=== PATIENT | female | born 1945 | race Two or more races ===

== ENCOUNTER 2020-07-25 00:25 | Emergency (ER) | payer OTHER ==
[~2020-07-25] VITALS: Ht 157.5 cm; Wt 45.4 kg
--- NOTE | 2020-07-25 00:48 | Emergency Room Report ---
History of Present Illness General Chief Complaint: Generalized Weakness Source: Patient, EMS Present Illness HPI 74-year-old female with a history of arthritis on Celebrex here with generalized weakness. Patient says that for the past 4 days she has had a lack of appetite and diarrhea. Says that the stool is watery and denies any change in stool color. No melena. Says she has had a lack of appetite but no nausea or vomiting. No fevers, chills, chest pain, palpitation, shortness of breath, back pain, abdominal pain, dysuria. Allergies: Coded Allergies: No Known Allergies (Unverified , 07/25/20) COVID-19 Screening Contact w/high risk pt: No Experienced COVID-19 symptoms?: No COVID-19 Testing performed [employer]GER: No Patient History Now: No Review of Systems All Other Systems: negative except mentioned in HPI Physical Exam Vital Signs Date Time Temp Pulse Resp B/P (MAP) Pulse Ox O2 Delivery O2 Flow Rate FiO2 07/25/20 00:15 98.4 118 20 90/56 (67) 98 Room Air Sp02 EP Interpretation: reviewed, normal General Appearance: no apparent distress, alert, non-toxic Head: normocephalic, atraumatic Eyes: bilateral eye normal inspection, bilateral eye PERRL ENT: hearing grossly normal, normal pharynx, no angioedema, normal voice, other - Dry cracked lips Neck: full range of motion, supple/symm/no masses Respiratory: chest non-tender, lungs clear, normal breath sounds, speaking full sentences Cardiovascular #1: no edema, other - Tachycardic 120 bpm. Regular rhythm Cardiovascular #2: 2+ carotid (R), 2+ carotid (L), 2+ radial (R), 2+ radial (L), 2+ dorsalis pedis (R), 2+ dorsalis pedis (L) Gastrointestinal: normal bowel sounds, non tender, soft, non-distended, no guarding, no rebound Rectal: deferred Genitourinary: normal inspection, no CVA tenderness Musculoskeletal: back normal, normal range of motion, gait/station normal, non- tender Neurologic: alert, motor strength/tone normal, oriented x3, sensory intact, responsive, speech normal Psychiatric: judgement/insight normal, memory normal, mood/affect normal, no suicidal/homicidal ideation Lymphatic: no adenopathy Medical Decision Making Diagnostic Impression: Primary Impression: UTI (urinary tract infection) Additional Impression: Sepsis ER Course EKG: Sinus rhythm 111 bpm, no ischemia, intervals WNL. No ectopy Rhythm strip: patient monitored for arrhythmias - no malignant dysrhythmias, runs of PVCs, nor pauses noted CXR: No infiltrate/effusion. Mediastinum within normal limits. No consolidations. No free air under the diaphragm. No bony abnormalities Laboratory Tests Test 07/25/20 01:11 07/25/20 01:15 White Blood Count 12.3 K/UL (4.8-10.8) H Red Blood Count 4.61 M/UL (4.20-5.40) Hemoglobin 14.4 G/DL (12.0-16.0) Hematocrit 43.9 % (37.0-47.0) Mean Corpuscular Volume 95 FL (80-99) Mean Corpuscular Hemoglobin 31.3 PG (27.0-31.0) H Mean Corpuscular Hemoglobin Concent 32.9 G/DL (32.0-36.0) Red Cell Distribution Width 14.2 % (11.6-14.8) Platelet Count 192 K/UL (150-450) Mean Platelet Volume 8.9 FL (6.5-10.1) Neutrophils (%) (Auto) % (45.0-75.0) Lymphocytes (%) (Auto) % (20.0-45.0) Monocytes (%) (Auto) % (1.0-10.0) Eosinophils (%) (Auto) % (0.0-3.0) Basophils (%) (Auto) % (0.0-2.0) Prothrombin Time 13.4 SEC (9.30-11.50) H Prothrombin Time INR 1.2 (0.9-1.1) H Activated Partial Thromboplast Time 46 SEC (23-33) H Urine Color Yellow Urine Appearance Clear Urine pH 6 (4.5-8.0) Urine Specific [place] 1.020 (1.005-1.035) Urine Protein 1+ (NEGATIVE) H Urine Glucose (UA) Negative (NEGATIVE) Urine Ketones 1+ (NEGATIVE) H Urine Blood 2+ (NEGATIVE) H Urine Nitrite Positive (NEGATIVE) H Urine Bilirubin Negative (NEGATIVE) Urine Urobilinogen 8 MG/DL (0.0-1.0) H Urine Leukocyte Esterase 1+ (NEGATIVE) H Urine RBC 2-4 /HPF (0 - 2) H Urine WBC 5-10 /HPF (0 - 2) H Urine Squamous Epithelial Cells Few /LPF (NONE/OCC) Urine Bacteria Many /HPF (NONE) H Sodium Level 135 MMOL/L (136-145) L Potassium Level 4.3 MMOL/L (3.5-5.1) Chloride Level 99 MMOL/L (98-107) Carbon Dioxide Level 23 MMOL/L (21-32) Anion Gap 13 mmol/L (5-15) Blood Urea Nitrogen 19 mg/dL (7-18) H Creatinine 1.1 MG/DL (0.55-1.30) Estimated Glomerular Filtration Rate 48.7 mL/min (>60) Glucose Level 131 MG/DL (74-106) H Calcium Level 9.8 MG/DL (8.5-10.1) Total Bilirubin 1.3 MG/DL (0.2-1.0) H Direct Bilirubin 0.4 MG/DL (0.0-0.3) H Aspartate Amino Transferase (AST) 86 U/L (15-37) H Alanine Aminotransferase (ALT) 47 U/L (12-78) Alkaline Phosphatase 126 U/L (46-116) H Troponin I 0.003 ng/mL (0.000-0.056) Total Protein 8.8 G/DL (6.4-8.2) H Albumin 3.1 G/DL (3.4-5.0) L Globulin 5.7 g/dL Albumin/Globulin Ratio 0.5 (1.0-2.7) L Lipase 152 U/L (73-393) Lactic Acid Level 1.90 mmol/L (0.4-2.0) 74-year-old female here with generalized weakness. Patient was hypotensive and tachycardic on arrival to the emergency department. She was given a 30 cc/kg fl uid bolus of normal saline with good resolution of her tachycardia and hypotension. She said that she felt much improved. Urinalysis showed evidence of urinary tract infection. CBC showed a mild leukocytosis of 12.3. CMP largely unremarkable. Patient was given ceftriaxone in the emergency department. I spoke with Dr. Gerber at [facility] who accepted the patient for transfer. Last Vital Signs Date Time Temp Pulse Resp B/P (MAP) Pulse Ox O2 Delivery O2 Flow Rate FiO2 07/25/20 00:15 98.4 118 20 90/56 (67) 98 Room Air Referrals: [facility],REFERRING (PCP) Thuan Velásquez M.D. Jul 25, 2020 00:48
--- NOTE | 2020-07-25 01:00 | NUR ---
ED Nurse Note: patient brought in via ems, complaints of generalized weakness ad diarrhea x4 days. patient is hypotensive and tachycardic, hx of chronic joint pain, unable to ambulate
[2020-07-25 01:10] VITALS: BP 90/56
--- NOTE | 2020-07-25 01:11 | NUR ---
ED Nurse Note:blood, urine, and covid swab collected and sent to lab
[2020-07-25 01:49] LABS: APPEARANCE,URINE CLEAR; BILIRUBIN, URINE NEGATIVE (NEGATIVE); GLUCOSE, URINE (UA) NEGATIVE (NEGATIVE); HEMATOCRIT 43.9 % (37.0-47.0); HEMOGLOBIN 14.4 G/DL (12.0-16.0); KETONES,URINE 1+ (NEGATIVE); LEUKOCYTE ESTERASE ,URINE 1+ (NEGATIVE); MEAN CORPUSCULAR VOLUME 95 FL (80-99); NITRITE,URINE POSITIVE (NEGATIVE); PH,URINE 6 (4.5-8.0); PLATELET COUNT 192 K/UL (150-450); PROTEIN,URINE 1+ (NEGATIVE); RED BLOOD COUNT 4.61 M/UL (4.20-5.40); RED CELL DISTRIBUTION WIDTH 14.2 % (11.6-14.8); UROBILINOGEN,URINE 8 MG/DL (0.0-1.0); WHITE BLOOD COUNT 12.3 K/UL (4.8-10.8)
[2020-07-25 01:54] LABS: COLOR,URINE YELLOW
[2020-07-25 01:55] VITALS: BP 116/61
[2020-07-25 01:59] LABS: CALCIUM 9.8 MG/DL (8.5-10.1); CREATININE 1.1 MG/DL (0.55-1.30); POTASSIUM 4.3 MMOL/L (3.5-5.1)
[2020-07-25] MEDS ORDERED: cefTRIAXone 1 GM in NS 55 ML IVPB ONE (02:00)
--- NOTE | 2020-07-25 02:05 | NUR ---
blooed cultures and lactic collected and sent to lab
[2020-07-25 02:09] LABS: ALBUMIN 3.1 G/DL (3.4-5.0); ALBUMIN/GLOBULIN RATIO 0.5 (1.0-2.7); BILIRUBIN,TOTAL 1.3 MG/DL (0.2-1.0)
[2020-07-25 02:11] LABS: BILIRUBIN,DIRECT 0.4 MG/DL (0.0-0.3)
[2020-07-25 02:16] LABS: INR 1.2 (0.9-1.1)
--- NOTE | 2020-07-25 03:00 | NUR ---
ED Nurse Note: MD-MD report facilitated for Dr. Velásquez to Dr. Chavez. Pt accepted for transfer
[2020-07-25 04:19] VITALS: BP 111/55
--- NOTE | 2020-07-25 04:30 | NUR ---
HAND-OFF: Report given to Rani @[facility].
--- NOTE | 2020-07-25 04:57 | NUR ---
TRANSFER TO [facility]: Patient transferred to as ordered, per MD. Report given to Rani.All personal belongings taken by patient. Family informed of transfer.
[2020-07-25 05:00] VITALS: BP 111/55
--- NOTE | 2020-07-25 18:11 | Diagnostic Imaging Report ---
Indication: Chest pain Technique: One view of the chest Comparison: none Findings: Extensive degenerative changes of both shoulders are noted. There is some atelectasis and possibly some patchy consolidation in the right mid and lower lung. There is a small retrocardiac hiatal hernia. The bilateral pleural spaces are clear. A cortical irregularity is seen at the posterolateral aspect of the left humeral head Impression: Right mid and lower lung atelectasis and possible consolidation Degenerative changes of both shoulders Cortical irregularity in the left shoulder; suspect chronic but nondisplaced acute fracture also possible. Correlate with clinical history and findings
== END 2020-07-25 05:02 | disposition short-term general hospital (02) ==
LOC: EDBD 00:25 → EMR 00:44
DX: A41.9 Sepsis, unspecified organism (principal); N39.0 Urinary tract infection, site not specified; M19.90 Unspecified osteoarthritis, unspecified site; Z79.899 Other long term (current) drug therapy
CPT/HCPCS: 36415; 71045; 80053; 81003; 82248; 83605; 83690; 84484; 85025; 85610; 85730; 87040; 87086; 87181; 93005; 96361; 96365; J0696; J7030; J7040; U0004; Z7502; 99284